=== PATIENT | male | born 1950 | race African-American/Black ===

== ENCOUNTER 2020-02-17 21:36 | Emergency (ER) | payer OTHER ==
[~2020-02-17] VITALS: Ht 170.2 cm; Wt 49.9 kg
[2020-02-17] MEDS ORDERED: NORVASC 2.5 MG2.5 M1 PO (21:49)
[2020-02-17] MEDS ORDERED: CELLCEPT250 MG PO (21:50)
[2020-02-17] MEDS ORDERED: PROGRAF 1 MG1 MG PO (21:51)
[2020-02-18 00:21] VITALS: BP 151/77
== END 2020-02-18 00:23 | disposition home or self-care (01) ==
LOC: ER 21:36
DX: F45.8 Other somatoform disorders (principal); Z79.899 Other long term (current) drug therapy